=== PATIENT | male | born 1955 | race Caucasian/White ===

== ENCOUNTER 2020-05-04 16:34 | Emergency (ER) | payer MEDICARE, BC ==
[2020-05-04] MEDS ORDERED: Diphtheria,Pertussis(Acell),Tetanus Vaccine 0.5 ML Syringe IM ONE (16:47)
[2020-05-04] MEDS ORDERED: Lidocaine 1% 10 ML MDV INJECT ONE (16:47)
[2020-05-04] MEDS ORDERED: Amoxicillin/Clavulanate K 875-125 MG Tab PO ONE (16:48)
[2020-05-04 16:51] VITALS: BP 180/101; PULSE 85
--- NOTE | 2020-05-04 17:03 | EDM.PDOC ---
ED HPI GENERAL MEDICAL PROBLEM - General Chief Complaint: Laceration Stated Complaint: RT PINKY FINGER LAC Time Seen by Provider: 05/04/20 16:45 Source of Information: Reports: Patient, RN Notes Reviewed History Limitations: Reports: No Limitations - History of Present Illness INITIAL COMMENTS - FREE TEXT/NARRATIVE: Patient is a 64-year-old male presenting to the emergency department with complaints of a laceration to his medial right fifth finger. He states he was playing ball with his dog and the dog excellently bit him trying to get the ball. The dog is up-to-date up-to-date on his vaccinations. Patient is unsure when his last tetanus vaccination was. - Related Data Allergies Allergy/AdvReac Type Severity Reaction Status Date / Time No Known Allergies Allergy Verified 05/04/20 16:51 Home Meds: Home Meds Multivitamin [Multivitamins] 1 tab PO DAILY 02/04/14 [History] Omeprazole 20 mg PO DAILY 02/04/14 [History] Simvastatin [Zocor] 20 mg PO BEDTIME 02/04/14 [History] hydroCHLOROthiazide [Hydrochlorothiazide] 25 - 50 mg PO DAILY 04/02/14 [History] Acetaminophen/HYDROcodone [[place] 325-10 MG] 1 - 2 tab PO Q4H PRN #80 tablet 04/04/14 [Rx] Celecoxib [CeleBREX] 200 mg PO DAILY #30 cap 04/04/14 [Rx] Docusate Sodium [Colace] 100 mg PO BID PRN #60 cap 04/04/14 [Rx] Rivaroxaban [Xarelto] 10 mg PO DAILY #12 tablet 04/04/14 [Rx] traMADol [Ultram] 1 - 2 tab PO Q6H PRN #60 tablet 04/04/14 [Rx] Amoxicillin/Clavulanate K [Augmentin 875-125 MG] 1 tab PO BID 5 Days #9 tab 05/04/20 [Rx] Past Medical History - Past Health History Medical/Surgical History: Denies Medical/Surgical History Social & Family History - Tobacco Use Tobacco Use Status *Q: Never Tobacco User - Recreational Drug Use Recreational Drug Use: No ED ROS GENERAL - Review of Systems Review Of Systems: Comprehensive ROS is negative, except as noted in HPI. ED EXAM, SKIN/RASH Exam: See Below Exam Limited By: No Limitations General Appearance: Alert, WD/WN, No Apparent Distress Respiratory/Chest: No Respiratory Distress, Lungs Clear, Normal Breath Sounds, No Accessory Muscle Use, Chest Non-Tender Cardiovascular: Normal Peripheral Pulses, Regular Rate, Rhythm, No Edema, No Gallop, No JVD, No Murmur, No Rub Extremities: Other (3cm v-shaped laceration to the medial right 5th finger. Moderate amount of active bleeding. Wound is slightly gaping.) ED SKIN PROCEDURES - Laceration/Wound Repair Right Digit - 5th (Baby) Appearance: Subcutaneous Distal NVT: Neuro & Vascular Intact, No Tendon Injury Anesthetic Type: Local Local Anesthesia - Lidocaine (Xylocaine): 1% Plain Local Anesthetic Volume: 2cc Skin Prep: Providone-Iodine (Betadine), Saline, Sterile Drape Exploration/Debridement/Repair: Wound Explored, No Foreign Material Found Closed with: Sutures Lac/Wound length In cm: 3 Suture Size: 4-0 # of Sutures: 3 (loose) Suture Type: Nylon Sterile Dressing Applied: Provider Tetanus Status Addressed: Yes Complications: No Progress/Comments: Wound closed with only 3 loose sutures as to approximate the edges but still have drainage due to this being caused by an animal bite. Course - Vital Signs Last Recorded V/S: Last Vital Signs Temp 97.5 F 05/04/20 16:46 Pulse 85 05/04/20 16:46 Resp 18 05/04/20 16:46 BP 180/101 H 05/04/20 16:46 Pulse Ox 97 05/04/20 16:46 - Orders/Labs/Meds Meds: Medications Discontinued Medications Generic Name Dose Route Start Last Admin Trade Name Freq PRN Reason Stop Dose Admin Amoxicillin/Clavulanate Potassium 1 tab 05/04/20 16:48 05/04/20 16:56 Augmentin 875 Mg/125 Mg PO 05/04/20 16:49 1 tab ONETIME ONE Administration Diphtheria/Tetanus/Acell Pertussis 0.5 ml 05/04/20 16:47 05/04/20 16:55 Boostrix IM 05/04/20 16:48 0.5 ml .ONCE ONE Administration Lidocaine HCl 10 ml 05/04/20 16:47 05/04/20 16:56 Xylocaine 1% INJECT 05/04/20 16:48 10 ml ONETIME ONE Administration - Re-Assessments/Exams Free Text/Narrative Re-Assessment/Exam: Pt is a 64 year old male present to the ER with c/o a laceration to his right 5th finger. He was playing ball with his dog and the dog bit is finger when trying to get the ball. Pts has a 3 cm v shaped laceration to the medial aspect of his right 5th finger. There is a moderate amount of active bleeding and the wound is quite deep. He has full strength to flexion and extension. Due to the severity of the injury, closure is required. Hand will be soaked in Betadine. I will close the wound with a few loose sutures to still allow for drainage and lessen the risk of infection. Pt will be started on Augmentin for infection prophylaxis. Tdap will be updated. See procedure notes for closure. Departure - Departure Time of Disposition: 17:26 Disposition: Home, Self-Care 01 Condition: Good Clinical Impression: Dog bite of extremity, Laceration - Discharge Information *PRESCRIPTION DRUG MONITORING PROGRAM REVIEWED*: No *COPY OF PRESCRIPTION DRUG MONITORING REPORT IN PATIENT CORINNE: No Prescriptions: Amoxicillin/Clavulanate K [Augmentin 875-125 MG] 1 tab PO BID 5 Days #9 tab Instructions: Animal Bite, Adult, [id number], Laceration Care, Adult, [id number] Referrals: Shari Piper NP [Primary Care Provider] - Forms: ED Department Discharge Additional Instructions: You were seen in the emergency department today for a laceration to your right little finger after being excellently bit by her dog while playing ball. We discussed, since this is a dog bite, we do not want to completely close the wound is all increase your risk for infection. 3 loose sutures were placed to help hold the wound together but still allow drainage. Recommend keeping the dressing in place for 24 to 48 hours. After that time, you may remove it and wash it gently with soap and water twice daily. This any chance the area could be contaminated, you should keep it covered. You been started on Augmentin for prevention of infection. Take these pills as prescribed. Watch for signs of infection including increased redness, swelling, purulent drainage. If this should occur, you should be seen either in the clinic or the ER for evaluation. Sutures should stay in place for 7 to 10 days. After that time, you may have them removed in the clinic by a nurse. Recommend calling your provider to set up a nurse visit for 7 to 10 days from today. Your tetanus vaccination was updated today so you are current for 10 years. Return to ER as needed. Sepsis Event Note (ED) - Evaluation Sepsis Screening Result: No Definite Risk
== END 2020-05-04 17:33 | disposition home or self-care (01) ==
LOC: JD.ED 16:34
DX: S61.256A Open bite of right little finger without damage to nail, initial encounter (principal); Z23 Encounter for immunization; W54.0XXA Bitten by dog, initial encounter
CPT/HCPCS: 12002; 90471; 90715; 99283; A9270

== ENCOUNTER 2021-06-04 13:50 | Day surgery (SDC) | payer MEDICARE, BC ==
[~2021-06-04 13:50] MED LIST: Bupivacaine 0.5%/EPINEPHrine 1:200,000 50 ML MDV ONE; Dexmedetomidine 200 MCG/2 ML SDV ONE; Ketamine 500 mg/10 ML MDV ONE; Lactated Ringers 1,000 ML IV SCH; Lidocaine 1% with EPINEPHrine 1:100,000 20 ML MDV ONE; Lidocaine 1%/Sod Bicarbonate in NS 8.4% 1 ML Syringe IDERM PRN; Midazolam 1 MG/ML 2 ML SDV ONE; Propofol 200 MG/20 ML SDV ONE; Sodium Chloride 0.9% 10 ML Syringe FLUSH PRN; Sodium Chloride 0.9% 10 ML Syringe FLUSH SCH; Sodium Chloride 0.9% 100 ML ONE; fentaNYL 100 MCG/2 ML SDV ONE
[2021-06-04] MEDS ORDERED: Lidocaine 1% with EPINEPHrine 1:100,000 20 ML MDV ONE (13:56)
[2021-06-04] MEDS ORDERED: ceFAZolin 1 GM Vial ONE (14:47)
[2021-06-04 16:51] VITALS: BP 140/78; PULSE 68
== END 2021-06-04 16:13 | disposition home or self-care (01) ==
LOC: JD.SDS 13:50
PROVIDERS: ATTEND Surgery
DX: D17.1 Benign lipomatous neoplasm of skin and subcutaneous tissue of trunk (principal); N63.20 Unspecified lump in the left breast, unspecified quadrant; E78.2 Mixed hyperlipidemia; I10 Essential (primary) hypertension; K21.9 Gastro-esophageal reflux disease without esophagitis; F41.9 Anxiety disorder, unspecified; Z98.890 Other specified postprocedural states; Z88.8 Allergy status to other drugs, medicaments and biological substances; Z79.82 Long term (current) use of aspirin; Z79.899 Other long term (current) drug therapy
CPT/HCPCS: 19120; J0690; J2250; J2704; J3010; J3490; J7120; 00400

== ENCOUNTER 2022-11-09 05:55 | Day surgery (SDC) | payer MEDICARE, BC ==
[~2022-11-09 05:55] MED LIST changes: -Bupivacaine 0.5%/EPINEPHrine 1:200,000 50 ML MDV ONE; -Dexmedetomidine 200 MCG/2 ML SDV ONE; -Ketamine 500 mg/10 ML MDV ONE; -Lidocaine 1% with EPINEPHrine 1:100,000 20 ML MDV ONE; -Lidocaine 1%/Sod Bicarbonate in NS 8.4% 1 ML Syringe IDERM PRN; -Midazolam 1 MG/ML 2 ML SDV ONE; -Propofol 200 MG/20 ML SDV ONE; -Sodium Chloride 0.9% 100 ML ONE; -fentaNYL 100 MCG/2 ML SDV ONE
[2022-11-09] MEDS ORDERED: Pregabalin 25 MG Cap PO ONE (06:00)
[2022-11-09] MEDS ORDERED: Acetaminophen 325 MG Tab PO ONE (06:00)
[2022-11-09] MEDS ORDERED: oxyCODONE ER 10 MG TAB.ER PO ONE (06:00)
[2022-11-09] MEDS ORDERED: Morphine 8 MG, EPINEPHrine 0.3 MG, Cefuroxime 750 MG, Ketorolac 30 MG, Sodium Chloride ... PRN ×5 (06:00)
[2022-11-09] MEDS ORDERED: Vancomycin 1 GM SDV ONE (06:32)
[2022-11-09] MEDS ORDERED: Tranexamic Acid 1,000 MG/10 ML Vial ONE (06:32)
[2022-11-09] MEDS ORDERED: Lactated Ringers 1,000 ML ONE (06:36)
[2022-11-09] MEDS ORDERED: fentaNYL 100 MCG/2 ML SDV ONE (06:36)
[2022-11-09] MEDS ORDERED: Propofol 200 MG/20 ML SDV ONE ×4 (06:36→09:14)
[2022-11-09] MEDS ORDERED: Midazolam 1 MG/ML 2 ML SDV ONE (06:37)
[2022-11-09] MEDS ORDERED: ceFAZolin 2 GM Vial ONE (06:39)
[2022-11-09] MEDS ORDERED: Dexmedetomidine 200 MCG/2 ML SDV ONE (06:41)
[2022-11-09] MEDS ORDERED: Ropivacaine 0.5% 5 MG/ML 30 ML SDV ONE (06:41)
[2022-11-09] MEDS ORDERED: EPINEPHrine 1 MG/ML SDV ONE (06:41)
[2022-11-09] MEDS ORDERED: Ketorolac 15 MG/ML SDV ONE (07:38)
[2022-11-09] MEDS ORDERED: Ondansetron 4 MG/2 ML SDV ONE (07:38)
[2022-11-09] MEDS ORDERED: ePHEDrine 50 MG/ML SDV ONE (07:48)
[2022-11-09] MEDS ORDERED: Ondansetron 4 MG/2 ML SDV IVPUSH PRN ×2 (07:56→16:31)
[2022-11-09] MEDS ORDERED: fentaNYL 100 MCG/2 ML SDV IVPUSH PRN (07:56)
[2022-11-09] MEDS ORDERED: HYDROmorphone 0.5 MG/0.5 ML Syringe IVPUSH PRN (07:56)
[2022-11-09] MEDS ORDERED: Ketamine 500 mg/10 ML MDV ONE (09:07)
[2022-11-09] MEDS ORDERED: oxyCODONE 5 MG Tab PO SCH (11:05)
[2022-11-09] MEDS ORDERED: oxyCODONE 5 MG Tab PO PRN (16:18)
[2022-11-09] MEDS ORDERED: Cyclobenzaprine 10 MG Tab PO PRN (16:19)
[2022-11-09] MEDS ORDERED: Morphine 2 MG/ML SYRINGE IVPUSH PRN (16:31)
[2022-11-09] MEDS ORDERED: Naloxone 0.4 MG/ML SDV IVPUSH PRN (16:31)
[2022-11-09] MEDS ORDERED: Docusate Sodium 100 MG Cap PO SCH (21:00)
[2022-11-09] MEDS ORDERED: Scopolamine 1.5 MG Transdermal Patch TRDERM PRN (21:11)
[2022-11-10 04:59] VITALS: BP 169/96; PULSE 88
[2022-11-10] MEDS ORDERED: Pantoprazole 40 MG Tab.CR PO SCH (06:00)
[2022-11-10] MEDS ORDERED: Non-Formulary Medication 1 Each (Losartan/Hydrochlorothiazide [Hyzaar 100-12.5 Tablet] 1 E PO SCH (09:00)
[2022-11-10] MEDS ORDERED: Hydrochlorothiazide 12.5 MG Cap PO SCH (09:00)
[2022-11-10] MEDS ORDERED: Losartan 100 MG Tab PO SCH (09:00)
== END 2022-11-10 06:30 | disposition home or self-care (01) ==
LOC: JD.SDS 05:55
PROVIDERS: ATTEND Orthopaedic Surgery
DX: T84.032A Mechanical loosening of internal right knee prosthetic joint, initial encounter (principal); I10 Essential (primary) hypertension; E78.2 Mixed hyperlipidemia; F41.9 Anxiety disorder, unspecified; R73.03 Prediabetes; K21.9 Gastro-esophageal reflux disease without esophagitis; E66.9 Obesity, unspecified; E78.00 Pure hypercholesterolemia, unspecified; Z88.8 Allergy status to other drugs, medicaments and biological substances; Z79.899 Other long term (current) drug therapy; Z79.82 Long term (current) use of aspirin; Z98.890 Other specified postprocedural states; Z96.651 Presence of right artificial knee joint; Z68.36 Body mass index [BMI] 36.0-36.9, adult
CPT/HCPCS: 0055T; 27487; 64447; 73560; 97110; 97116; 97161; A9270; C1713; C1776; J0171; J0690; J0697; J1885; J2250; J2270; J2405; J2704; J2795; J3010; J3370; J3490; J7030; J7120; 01402